=== PATIENT | female | born 1950 | race Caucasian/White ===

== ENCOUNTER 2023-11-10 21:55 | Emergency (ER) | payer BC ==
[2023-11-10] MEDS ORDERED: IBUPROFEN 600 MG TAB PO ONE (22:45)
[2023-11-10] MEDS ORDERED: IBUPROFEN 400 MG TAB ONE (23:11)
[2023-11-11] MEDS ORDERED: traMADol 50 MG STARTER PACK 3 TAB BTL ONE (00:56)
--- NOTE | 2023-12-14 13:08 | XR ---
EXAM: XR Left Wrist Complete, 3 or More Views CLINICAL HISTORY: Pain TECHNIQUE: Frontal, lateral and oblique views of the left wrist. COMPARISON: No relevant prior studies available. FINDINGS: Bones/joints:Acute nondisplaced intra-articular distal radius fracture with 30 dorsal angulation of the distal fragment. Acute nondisplaced fracture through the base of the ulnar styloid. No other fractures. No dislocation. Osteopenia. 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 Soft tissues: Soft tissue swelling. No radiopaque foreign body. IMPRESSION: 1. Acute nondisplaced intra-articular distal radius fracture with 30 dorsal angulation of the distal fragment. 2. Acute nondisplaced fracture through the base of the ulnar styloid. Radiologist: Madhu Oconnor M.D. Electronically Signed: 11/11/23 02:12 Study ready at 00:14 and initial results transmitted at 02:[address] [facility]
== END 2023-11-11 01:00 | disposition home or self-care (01) ==
LOC: EC 21:55
CPT/HCPCS: 99283; 99285